=== PATIENT | female | born 1980 | race Caucasian/White ===

== ENCOUNTER 2019-08-28 15:30 | Emergency (ER) | payer OTHER ==
--- NOTE | 2019-08-28 17:28 | ER Document Report ---
ED Medical Screen (RME) - General Chief Complaint: Palpitations Stated Complaint: PALPITATIONS Time Seen by Provider: 08/28/19 17:21 Mode of Arrival: Ambulatory Information source: Patient Notes: 39-year-old female who is relatively healthy presents today with complaints of palpitations. Reports this happened to her in the past. She reports she felt like it was beating in her throat. Patient reports she became very lightheaded. She drove herself here but was worried that she would make it. Denies chest pain. Reports her sister is being treated for something with a fast heart rate also. Denies fever vomiting diarrhea. I have greeted and performed a rapid initial assessment of this patient. A comprehensive ED assessment and evaluation of the patient, analysis of test results and completion of the medical decision making process will be conducted by additional ED providers. - Related Data Allergies/Adverse Reactions: No Known Allergies Allergy (Verified 08/28/19 17:22)
[2019-08-28 18:01] LABS: ABSOLUTE LYMPHOCYTES (AUTO) 1.2 10^3/uL (0.5-4.7); ABSOLUTE MONOCYTES (AUTO) 0.5 10^3/uL (0.1-1.4); ABSOLUTE NEUT (AUTO) 6.3 10^3/uL (1.7-8.2); BASOPHILS % (AUTO) 0.3 % (0-2); EOSINOPHILS % (AUTO) 0.3 % (0-6); HEMATOCRIT 43.2 % (36.0-47.0); HEMOGLOBIN 14.8 g/dL (12.0-15.5); LYMPHOCYTES % (AUTO) 14.9 % (13-45); MEAN CORPUSCULAR HEMOGLOBIN 30.9 pg (27.0-33.4); MEAN CORPUSCULAR HGB CONC 34.2 g/dL (32.0-36.0); MEAN CORPUSCULAR VOLUME 91 fl (80-97); MONOCYTES % (AUTO) 6.8 % (3-13); PLATELET COUNT 205 10^3/uL (150-450); RED BLOOD COUNT 4.77 10^6/uL (3.72-5.28); RED CELL DISTRIBUTION WIDTH 12.3 % (11.5-14.0); SEGMENTED NEUTROPHILS % (AUTO) 77.7 % (42-78); TOTAL CELLS COUNTED % (AUTO) 100 %
--- NOTE | 2019-08-28 18:01 | RADIOLOGY REPORT (SQ) ---
EXAM DESCRIPTION: CHEST 2 VIEWS COMPLETED DATE/TIME: 08/28/2019 5:51 pm REASON FOR STUDY: palpitations COMPARISON: None. EXAM PARAMETERS: NUMBER OF VIEWS: two views TECHNIQUE: Digital Frontal and Lateral radiographic views of the chest acquired. RADIATION DOSE: NA LIMITATIONS: none FINDINGS: LUNGS AND PLEURA: No opacities, masses or pneumothorax. No pleural effusion. MEDIASTINUM AND HILAR STRUCTURES: No masses or contour abnormalities. HEART AND VASCULAR STRUCTURES: Heart normal size. No evidence for failure. BONES: No acute findings. HARDWARE: None in the chest. OTHER: No other significant finding. IMPRESSION: NO ACUTE RADIOGRAPHIC FINDING IN THE CHEST. TECHNICAL DOCUMENTATION: JOB ID: [id number] [email or web address]- All Rights Reserved Reading location - IP/workstation name: [email or web address]
[2019-08-28 18:07] LABS: APPEARANCE,URINE CLEAR; BILIRUBIN,URINE NEGATIVE (NEGATIVE); COLOR,URINE STRAW; GLUCOSE, URINE NEGATIVE (NEGATIVE); KETONES,URINE NEGATIVE (NEGATIVE); LEUKOCYTE ESTERASE,URINE NEGATIVE (NEGATIVE); NITRITE,URINE NEGATIVE (NEGATIVE); PROTEIN,URINE NEGATIVE (NEGATIVE); URINE SPECIFIC GRAVITY 1.006; UROBILINOGEN,URINE NEGATIVE mg/dL (<2.0)
[2019-08-28 18:21] LABS: ALBUMIN 4.9 g/dL (3.5-5.0); ALKALINE PHOSPHATASE 65 U/L (38-126); ANION GAP 11 (5-19); ASPARTATE AMINO TRANSFERASE 28 U/L (14-36); BILIRUBIN,DIRECT 0.2 mg/dL (0.0-0.4); BILIRUBIN,TOTAL 0.4 mg/dL (0.2-1.3); BLOOD UREA NITROGEN 13 mg/dL (7-20); CALCIUM 9.5 mg/dL (8.4-10.2); CARBON DIOXIDE 28 mmol/L (22-30); CHLORIDE 101 mmol/L (98-107); GLUCOSE 102 mg/dL (75-110); POTASSIUM 3.8 mmol/L (3.6-5.0)
--- NOTE | 2019-08-28 20:36 | ER Document Report ---
ED General - General Chief Complaint: Palpitations Stated Complaint: PALPITATIONS Time Seen by Provider: 08/28/19 17:21 Primary Care Provider: MARY KANG MD [ACTIVE STAFF] - Follow up as needed TRAVIS BRUNSON MD [ACTIVE STAFF] - Follow up as needed GUMARO FLAHERTY MD [EMERITUS] - Follow up as needed Mode of Arrival: Ambulatory Notes: 39-year-old female who is relatively healthy presents today with complaints of palpitations. Reports this happened to her in the past. She reports she felt like it was beating in her throat. Patient reports she became very lightheaded. She drove herself here but was worried that she would make it. Denies chest pain. Reports her sister is being treated for something with a fast heart rate also. Denies fever vomiting diarrhea. TRAVEL OUTSIDE OF THE [place] IN LAST 30 DAYS: No - HPI Onset: Just prior to arrival Onset/Duration: Sudden Quality of pain: No pain Associated symptoms: None Exacerbated by: Denies Relieved by: Denies Similar symptoms previously: Yes Recently seen / treated by doctor: No - Related Data Allergies/Adverse Reactions: No Known Allergies Allergy (Verified 08/28/19 17:22) Past Medical History - General Information source: Patient - Social History Smoking Status: Never Smoker Chew tobacco use (# tins/day): No Frequency of alcohol use: None Occupation: sed special education teacher Lives with: Family Family History: Other - SISTER WITH SVT Patient has suicidal ideation: No Patient has homicidal ideation: No - Medical History Medical History: Negative Surgical Hx: Negative Review of Systems - Review of Systems Notes: Review HPI for review of systems., All other systems negative Physical Exam - Vital signs Vitals: Temp Pulse Resp BP Pulse Ox 97.9 F 116 H 20 159/107 H 100 08/28/19 15:43 08/28/19 15:43 08/28/19 15:43 08/28/19 15:43 08/28/19 15:43 - Notes Notes: PHYSICAL EXAMINATION: GENERAL: Well-appearing and in no acute distress HEAD: Atraumatic, normocephalic. EYES: Pupils equal round and reactive to light, extraocular movements intact, sclera anicteric, conjunctiva are normal. ENT: nares patent, oropharynx clear without exudates. Moist mucous membranes. NECK: Normal range of motion, supple without lymphadenopathy LUNGS: CTAB and equal. No wheezes rales or rhonchi. HEART: Regular rate and rhythm without murmurs ABDOMEN: Soft, no tenderness. No guarding, no rebound EXTREMITIES: Normal range of motion, no pitting edema. No cyanosis. NEUROLOGICAL: Cranial nerves grossly intact. Normal sensory/motor exams. PSYCH: Normal mood, normal affect. SKIN: Warm, Dry, normal turgor, no rashes or lesions noted Course - Re-evaluation Re-evalutation: 08/28/19 20:33 39-year-old female presents with palpitations. Reports it felt like her heart was beating in her throat. She denies nausea vomiting diarrhea. Denies chest pain. Reports her sister has a history of SVT. Patient reports it made her feel lightheaded. Patient reassessed has been waiting in the waiting room for more than a couple hours. All labs have returned unremarkable chest x-ray negative. Vital signs rechecked heart rate 87. Patient reports she feels better. Discussed plan of care to follow-up with primary care provider channel director. She was also instructed on Valsalva maneuvers. She verbalized understanding to all instructi ons. Chest X-Ray 08/28/19 17:26 IMPRESSION: NO ACUTE RADIOGRAPHIC FINDING IN THE CHEST. 08/28/19 17:36 08/28/19 17:36 MCV 91 fl (80-97) 08/28/19 17:36 MCH 30.9 pg (27.0-33.4) 08/28/19 17:36 MCHC 34.2 g/dL (32.0-36.0) 08/28/19 17:36 RDW 12.3 % (11.5-14.0) 08/28/19 17:36 Seg Neutrophils % 77.7 % (42-78) 08/28/19 17:36 Chloride 101 mmol/L (98-107) 08/28/19 17:36 Carbon Dioxide 28 mmol/L (22-30) 08/28/19 17:36 Anion Gap 11 (5-19) 08/28/19 17:36 Est GFR ( Amer) > 60 (>60) 08/28/19 17:36 Glucose 102 mg/dL (75-110) 08/28/19 17:36 Calcium 9.5 mg/dL (8.4-10.2) 08/28/19 17:36 Total Bilirubin 0.4 mg/dL (0.2-1.3) 08/28/19 17:36 AST 28 U/L (14-36) 08/28/19 17:36 Alkaline Phosphatase 65 U/L (38-126) 08/28/19 17:36 Total Protein 8.0 g/dL (6.3-8.2) 08/28/19 17:36 Albumin 4.9 g/dL (3.5-5.0) 08/28/19 17:36 TSH 2.09 uIU/mL (0.47-4.68) 08/28/19 17:36 Urine Color STRAW 08/28/19 17:36 Urine Appearance CLEAR 08/28/19 17:36 Urine pH 7.0 (5.0-9.0) 08/28/19 17:36 Ur Specific Harlan 1.006 08/28/19 17:36 Urine Protein NEGATIVE mg/dL (NEGATIVE) 08/28/19 17:36 Urine Glucose (UA) NEGATIVE mg/dL (NEGATIVE) 08/28/19 17:36 Urine Ketones NEGATIVE mg/dL (NEGATIVE) 08/28/19 17:36 Urine Blood NEGATIVE (NEGATIVE) 08/28/19 17:36 Urine Nitrite NEGATIVE (NEGATIVE) 08/28/19 17:36 Ur Leukocyte Esterase NEGATIVE (NEGATIVE) 08/28/19 17:36 Urine WBC (Auto) 1 /HPF 08/28/19 17:36 Urine RBC (Auto) 3 /HPF 08/28/19 17:36 08/28/19 17:36 Troponin I < 0.012 - Vital Signs Vital signs: Temp Pulse Resp BP Pulse Ox 97.9 F 116 H 20 159/107 H 100 08/28/19 15:43 08/28/19 15:43 08/28/19 15:43 08/28/19 15:43 08/28/19 15:43 - Laboratory Result Diagrams: 08/28/19 17:36 08/28/19 17:36 Laboratory results interpreted by me: 08/28/19 17:36 Urine Ascorbic Acid 40 H - Diagnostic Test Radiology reviewed: Reports reviewed - EKG Interpretation by Me EKG shows normal: Sinus rhythm Rate: Tachycardia Additional EKG results interpreted by me: 08/28/19 20:[address] elevation no T wave inversion Discharge - Discharge Clinical Impression: Palpitations Condition: Stable Disposition: HOME, SELF-CARE Instructions: Palpitations (Irregular or Rapid Heartrate) ([facility]) Additional Instructions: *You have been evaluated for palpitations Your labs were unremarkable, your chest x-ray was negative. Monitor your heart rate *Follow up with a primary care provider within 1 week Follow-up with cardiology tomorrow *Return to ED for worsening condition, changes, needs, chest pains concerns Referrals: MARY KANG MD [ACTIVE STAFF] - Follow up as needed GUMARO FLAHERTY MD [EMERITUS] - Follow up as needed TRAVIS BRUNSON MD [ACTIVE STAFF] - Follow up as needed
[2019-08-28 21:20] VITALS: BP 147/87
--- NOTE | 2019-08-29 19:28 | EKG REPORT ---
SEVERITY:- ABNORMAL ECG - SINUS TACHYCARDIA LEFT ATRIAL ABNORMALITY : Confirmed by: Luna Gay MD 29-Aug-2019 19:28:13
== END 2019-08-28 21:20 | disposition home or self-care (01) ==
LOC: ER 15:30
DX: R00.2 Palpitations (principal)
CPT/HCPCS: 36415; 71046; 80053; 81001; 81025; 84443; 84484; 85025; 93005; 93010; 99285

== ENCOUNTER 2020-08-29 13:48 | Emergency (ER) | payer OTHER ==
--- NOTE | 2020-08-29 14:05 | EKG REPORT ---
SEVERITY:- BORDERLINE ECG - SINUS TACHYCARDIA PROBABLE LEFT ATRIAL ABNORMALITY NONSPECIFIC ST-T CHANGES- ANTERIOR LEADS : Confirmed by: Thad Snider MD 29-Aug-2020 14:04:00
--- NOTE | 2020-08-29 14:07 | ER Document Report ---
ED Medical Screen (RME) - General Chief Complaint: Palpitations Stated Complaint: SHAKY,LEG WEAKNESS,PALPITATIONS Time Seen by Provider: 08/29/20 14:02 Primary Care Provider: REYES RAMIREZ PA-C [Primary Care Provider] - Follow up as needed Mode of Arrival: Ambulatory Information source: Patient Notes: HPI; 40-year-old female presents to the emergency room complaining of elevated blood pressures for the past several months. Patient states her blood pressure has been elevated in the past at doctor's visits so she decided to buy a cuff and has been monitoring her blood pressures and states they have been consistently high. Also complaining of fluttering in her chest that lasted a few seconds last night with some chest pain. Describes the pain as an aching to the left side of her chest. No shortness of breath, no difficulty breathing. Has never been evaluated by primary care physician for her elevated blood pressure. Family history positive for hypertension. PE: Alert and oriented x3. Lungs: Clear to auscultation without rales, rhonchi, wheezes. Heart: Tachycardic without murmurs, rubs, gallops. I have greeted and performed a rapid initial assessment of this patient. A comprehensive ED assessment and evaluation of the patient, analysis of test results and completion of the medical decision making process will be conducted by additional ED providers. I have specifically instructed the patient or family members with the patient to immediately return to any nursing staff should anything change in the patient's condition or with their chief complaint. TRAVEL OUTSIDE OF THE [place] IN LAST 30 DAYS: No - Related Data Allergies/Adverse Reactions: No Known Allergies Allergy (Verified 08/28/19 17:22) Physical Exam - Vital signs Vitals: Temp Pulse Resp BP Pulse Ox 97.8 F 108 H 16 170/98 H 97 08/29/20 13:59 08/29/20 13:59 08/29/20 13:59 08/29/20 13:59 08/29/20 13:59 Course - Vital Signs Vital signs: Temp Pulse Resp BP Pulse Ox 97.8 F 108 H 16 170/98 H 97 08/29/20 13:59 08/29/20 13:59 08/29/20 13:59 08/29/20 13:59 08/29/20 13:59 Doctor's Discharge - Discharge Referrals: REYES RAMIREZ PA-C [Primary Care Provider] - Follow up as needed
[2020-08-29 14:48] LABS: ABSOLUTE EOSINOPHILS # (AUTO) 0.1 10^3/uL (0.0-0.6); ABSOLUTE LYMPHOCYTES (AUTO) 1.3 10^3/uL (0.5-4.7); ABSOLUTE MONOCYTES (AUTO) 0.4 10^3/uL (0.1-1.4); BASOPHILS % (AUTO) 0.3 % (0-2); HEMOGLOBIN 14.9 g/dL (12.0-15.5); LYMPHOCYTES % (AUTO) 19.6 % (13-45); MEAN CORPUSCULAR HEMOGLOBIN 30.5 pg (27.0-33.4); MEAN CORPUSCULAR HGB CONC 34.6 g/dL (32.0-36.0); MEAN CORPUSCULAR VOLUME 88 fl (80-97); PLATELET COUNT 201 10^3/uL (150-450); RED BLOOD COUNT 4.87 10^6/uL (3.72-5.28); RED CELL DISTRIBUTION WIDTH 12.9 % (11.5-14.0); SEGMENTED NEUTROPHILS % (AUTO) 73.1 % (42-78); TOTAL CELLS COUNTED % (AUTO) 100 %; WHITE BLOOD COUNT 6.8 10^3/uL (4.0-10.5)
[2020-08-29 14:59] LABS: ALBUMIN 4.5 g/dL (3.5-5.0); ALKALINE PHOSPHATASE 84 U/L (38-126); ASPARTATE AMINO TRANSFERASE 30 U/L (14-36); BILIRUBIN,DIRECT 0.2 mg/dL (0.0-0.4); BILIRUBIN,TOTAL 0.8 mg/dL (0.2-1.3); BLOOD UREA NITROGEN 14 mg/dL (7-20); CALCIUM 9.4 mg/dL (8.4-10.2); CARBON DIOXIDE 30 mmol/L (22-30); CHLORIDE 103 mmol/L (98-107); GLUCOSE 97 mg/dL (75-110); POTASSIUM 4.5 mmol/L (3.6-5.0); TOTAL PROTEIN 7.4 g/dL (6.3-8.2)
--- NOTE | 2020-08-29 15:03 | RADIOLOGY REPORT (SQ) ---
EXAM DESCRIPTION: CHEST 2 VIEWS IMAGES COMPLETED DATE/TIME: 08/29/2020 1:42 pm REASON FOR STUDY: chest pain COMPARISON: 08/28/2019 EXAM PARAMETERS: NUMBER OF VIEWS: two views TECHNIQUE: Digital Frontal and Lateral radiographic views of the chest acquired. RADIATION DOSE: NA LIMITATIONS: none FINDINGS: LUNGS AND PLEURA: No opacities, masses or pneumothorax. No pleural effusion. MEDIASTINUM AND HILAR STRUCTURES: No masses or contour abnormalities. HEART AND VASCULAR STRUCTURES: Heart normal size. No evidence for failure. BONES: No acute findings. HARDWARE: None in the chest. OTHER: No other significant finding. IMPRESSION: NO ACUTE RADIOGRAPHIC FINDING IN THE CHEST. TECHNICAL DOCUMENTATION: JOB ID: [id number] [employer]- All Rights Reserved Reading location - IP/workstation name: [email or web address]
[2020-08-29 15:07] LABS: ANION GAP 4 (5-19)
[2020-08-29] MEDS ORDERED: ATENOLOL 50 MG TABLET PO ONE (22:30)
--- NOTE | 2020-08-29 22:35 | ER Document Report ---
Entered by CHAPINCITO VENTURA SCRIBE 08/29/20 2228 Acting as scribe for:CHONG ESCOBAR, ED General - General Chief Complaint: Palpitations Stated Complaint: SHAKY,LEG WEAKNESS,PALPITATIONS Time Seen by Provider: 08/29/20 14:02 Primary Care Provider: REYES RAMIREZ PA-C [Primary Care Provider] - Follow up as needed RUPALI ZURITA MD [ACTIVE PROVISIONAL STAFF] - 08/30/20 Mode of Arrival: Ambulatory Information source: Patient Notes: This 40 year old female patient presents to the emergency department today with complaints of palpitations and elevated blood pressure. Patient states she experienced this before a year ago and was waiting for more results before seeing a Foundry Supervisor, but has not been able to schedule an appointment since the pandemic started. Patient states she has worn a heart monitor before and sister has history of SVT. Patient states she moved here from [place] 1.5 years ago. Patient reports a "flutter" yesterday that was quick for a second and felt like she was going to faint after. Denies any fever or covid exposure. TRAVEL OUTSIDE OF THE [place] IN LAST 30 DAYS: No - Related Data Allergies/Adverse Reactions: No Known Allergies Allergy (Verified 08/28/19 17:22) Past Medical History - General Information source: Patient - Social History Smoking Status: Unknown if Ever Smoked Lives with: Family Family History: DM, Hypertension, Other - SISTER WITH SVT Surgical Hx: Negative Review of Systems - Review of Systems Constitutional: See HPI. denies: Fever EENT: No symptoms reported Cardiovascular: See HPI, Palpitations, Other - elevated blood pressure Respiratory: No symptoms reported Gastrointestinal: No symptoms reported Genitourinary: No symptoms reported Female Genitourinary: No symptoms reported Musculoskeletal: No symptoms reported Skin: No symptoms reported Hematologic/Lymphatic: No symptoms reported Neurological/Psychological: No symptoms reported -: Yes All other systems reviewed and negative Physical Exam - Vital signs Vitals: Temp Pulse Resp BP Pulse Ox 97.8 F 108 H 16 170/98 H 97 08/29/20 13:59 08/29/20 13:59 08/29/20 13:59 08/29/20 13:59 08/29/20 13:59 - General General appearance: Appears well, Alert - HEENT Head: Normocephalic, Atraumatic Eyes: Normal Pupils: PERRL - Respiratory Respiratory status: No respiratory distress Chest status: Nontender Breath sounds: Normal Chest palpation: Normal - Cardiovascular Rhythm: Regular Heart sounds: Normal auscultation Murmur: No - Abdominal Inspection: Normal Distension: No distension Bowel sounds: Normal Tenderness: Nontender - Extremities General upper extremity: Normal inspection, Normal ROM General lower extremity: Normal inspection, Normal ROM. No: Edema - Neurological Neuro grossly intact: Yes Cognition: Normal Orientation: AAOx4 Michela Coma Scale Eye Opening: Spontaneous [place] Coma Scale Verbal: Oriented [place] Coma Scale Motor: Obeys Commands [place] Coma Scale Total: 15 Speech: Normal Motor strength normal: LUE, RUE, LLE, RLE Sensory: Normal - Psychological Associated symptoms: Normal affect, Normal mood - Skin Skin Temperature: Warm Skin Moisture: Dry Skin Color: Normal Course - Re-evaluation Re-evalutation: 08/29/20 22:31 MDM 40 year old female with palpitations and elevated BP. Family member with SVT (sister). No discreet chest pain or sob. Has been meaning to follow up but not able to do to [facility]. She is nontoxic here. Discussed follow up with Cardiology and return precautions and she expressed understanding. - Vital Signs Vital signs: Temp Pulse Resp BP Pulse Ox 98.0 F 88 16 150/104 H 100 08/29/20 22:55 08/29/20 22:55 08/29/20 22:55 08/29/20 22:55 08/29/20 22:55 - Laboratory Results Result Diagrams: 08/29/20 14:20 08/29/20 14:20 Laboratory Results Interpreted: 08/29/20 14:20 Anion Gap 4 L Critical Laboratory Results Reviewed: No Critical Results - Radiology Results Critical Radiology Results Reviewed: No Critical Results - EKG Interpretation by Me EKG shows normal: Sinus rhythm Rate: Tachycardia - Sinus Tachy Nl [place]oon[place] no st elevation or depression my interpretation. Rhythm: NSR Discharge - Discharge Clinical Impression: Elevated blood pressure reading, Tachycardia Condition: Stable Disposition: HOME, SELF-CARE Instructions: Beta Blockers ([facility]), Palpitations (Irregular or Rapid Heartrate) ([facility]) Additional Instructions: See the referral doctor in follow up. Call his office tomorrow. Please return here for chest pain, shortness of breath or other problems or other concerns. Prescriptions: Atenolol [Tenormin] 25 mg PO DAILY #30 tablet Referrals: REYES RAMIREZ PA-C [Primary Care Provider] - Follow up as needed RUPALI ZURITA MD [ACTIVE PROVISIONAL STAFF] - 08/30/20 I personally performed the services described in the documentation, reviewed and edited the documentation which was dictated to the scribe in my presence, and it accurately records my words and actions.
[2020-08-29 22:55] VITALS: BP 150/104
== END 2020-08-29 23:07 | disposition home or self-care (01) ==
LOC: ER 13:48
DX: R00.0 Tachycardia, unspecified (principal); R03.0 Elevated blood-pressure reading, without diagnosis of hypertension; R00.2 Palpitations; Z82.49 Family history of ischemic heart disease and other diseases of the circulatory system
CPT/HCPCS: 36415; 71046; 80053; 84484; 85025; 93005; 93010; 99285